=== PATIENT | male | born 1975 | race Caucasian/White ===

== ENCOUNTER 2020-09-28 13:23 | Emergency (ER) | payer BC ==
[~2020-09-28] VITALS: Ht 180.3 cm; Wt 86.4 kg
[2020-09-28] MEDS ORDERED: ketorolac tromethamine 15mg/ml inj. IM ONE (15:50)
[2020-09-28] MEDS ORDERED: cyclobenzaprine 10mg tablet PO ONE (15:50)
[2020-09-28] MEDS ORDERED: DIAZ5TAB22 PO (17:07)
[2020-09-28] MEDS ORDERED: IBUP-1984 PO (17:07)
--- NOTE | 2020-09-28 20:01 | NUR ---
PATIENT IN HARD C COLLAR LYING IN BED 15. PATIENT REPORTS 8/10 PAIN IN NECK AND PRIMARILY ACHING FROM LEFT LATERAL SHOULDER TO ELBOW. 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 HE REPORTS WRESTLING WITH A FRIEND WELL PITCHING A BASEBALL GAME RECENTLY. HE WENT TO "VERTICAL CHIROPRACTIC" AND WAS ADJUSTED TODAY. HE ALSO WENT TO [facility] WHO HE SAYS SENT HIM HERE
[2020-09-28] MEDS ORDERED: diazepam inj 5 MG/ML inj. IV ONE (20:15)
[2020-09-28] MEDS ORDERED: morphine 2 MG/ML inj. syringe IV PRN (20:15)
--- NOTE | 2020-09-28 20:35 | NUR ---
phone report to rubia weiss at [facility]. rubia weiss wanted a rapid covid swab performed. completed. results to be faxed
[2020-09-28 20:40] VITALS: BP 117/56
--- NOTE | 2020-09-28 20:40 | NUR ---
bedside report to dignity clerk guide lupe
--- NOTE | 2020-09-28 21:19 | NUR ---
negative covid result faxed to [facility] er [phone]
== END 2020-09-28 20:41 | disposition short-term general hospital (02) ==
LOC: ER 13:24
DX: S12.500A Unspecified displaced fracture of sixth cervical vertebra, initial encounter for closed fracture (principal); S12.600A Unspecified displaced fracture of seventh cervical vertebra, initial encounter for closed fracture; Z20.822 Contact with and (suspected) exposure to COVID-19; W18.39XA Other fall on same level, initial encounter; Y93.89 Activity, other specified; Y92.89 Other specified places as the place of occurrence of the external cause; Y99.8 Other external cause status
CPT/HCPCS: 72125; 72141; 87635; 96372; 96374; 96375; 99285; C9803; J1885; J2270; J3360

== ENCOUNTER 2021-05-01 15:10 | Emergency (ER) | payer BC ==
[~2021-05-01] VITALS: Ht 180.3 cm; Wt 86.4 kg
[2021-05-01 15:14] VITALS: BP 127/93
== END 2021-05-01 17:22 | disposition home or self-care (01) ==
LOC: ER 15:10
DX: T18.9XXA Foreign body of alimentary tract, part unspecified, initial encounter (principal); X58.XXXA Exposure to other specified factors, initial encounter; Y93.89 Activity, other specified; Y92.89 Other specified places as the place of occurrence of the external cause; Y99.8 Other external cause status
CPT/HCPCS: 71046; 99283

== ENCOUNTER → 2024-09-19 | Emergency (ER) | payer BC ==
[~2024-09-19] VITALS: Ht 180.3 cm; Wt 84.4 kg
[~2024-09-19] MED LIST: CYCL-394 PO; NAPR-56 PO
[2024-09-19 14:24] VITALS: TEMP 98.5
[2024-09-19 14:53] VITALS: BP 101/61; PULSE 70; RESP 15; O2SAT 94
--- NOTE | 2024-09-19 15:13 | RADIOLOGY REPORT ---
CHEST RADIOGRAPH Indication: left rib pain with rhonchi and SOB s/p trauma Technique: Single frontal view of the chest was obtained Comparison: None FINDINGS: Lines and Tubes: None Lungs: No focal consolidation. Pleura: No effusion. No pneumothorax. Cardiomediastinal contours: Cardiomegaly. Bones: No acute osseous abnormality. IMPRESSION: 1. No acute cardiopulmonary disease.
[2024-09-19] MEDS: acetaminophen 325mg tablet PO ONE (16:06)
[2024-09-19] MEDS: ketorolac trometh 15mg/ml vial 15 MG/ML ML IM ONE (16:06)
--- NOTE | 2024-09-19 16:42 | RADIOLOGY REPORT ---
Indication: fall Technique: 2 views thoracic spine Comparison: None FINDINGS/IMPRESSION: The thoracic vertebral body heights are maintained. [id number] multilevel disc space narrowing. Alignment grossly preserved.
--- NOTE | 2024-09-19 16:42 | RADIOLOGY REPORT ---
Indication: fall Technique: 3 views lumbar spine Comparison: None FINDINGS/IMPRESSION: Lumbar vertebral body heights are maintained. Mild multilevel disc space narrowing. Alignment prese rved. [id number] lumbar facet hypertrophic changes most pronounced at L5-S1.
--- NOTE | 2024-09-19 16:42 | Physician Documentation ---
History of Present Illness ~ Chief Complaint: Rib pain Stated Complaint: RIB PAIN Time Seen by MD: 14:47 HPI 48-year-old male presents to the ED with a complaint of back left rib pain because he was wrestling with a friend this afternoon under the influence and his friend dropped him on the concrete on the left side. States he has a history of rib fractures. Reports difficult the with the in inspiration Day of Onset: September 19, 2024 Tetanus within 5 Years?: No (unknown) Allergies: Coded Allergies: No Known Allergies (Unverified , 09/28/20) Active Prescriptions See Medication Reconciliation Form. Medication Reconciliation Scheduled Cyclobenzaprine HCl (Cyclobenzaprine HCl), 1 TAB PO Q8H Naproxen (Naproxen), 1 TAB PO Q12H Past Medical History Past Medical History: *PULMONARY* Past Surgical History: noncontributory Smoking Status: Never smoker Alcohol Use: None Drug Use: none Review of Systems All Other Systems at this time: Reviewed and Negative ROS As stated above in the HPI, otherwise all systems are reviewed and negative. Physical Exam Vital Signs: Temperature: 98.5, Source: Oral, Heart Rate: 70, Respiratory Rate: 15, BP: 101/61, Pulse Oximetry: 94, Weight: 84.400 Oxygen Flow Rate: 0 Physical Exam General: Alert, no apparent distress. Neck: Full range of motion. Respiratory: Lungs clear, no respiratory distress. back: Or to lumbar region on the left side , tender to thoracic region on the left side Extremities: Normal range of motion, no deformity. Neurologic: Oriented x4. Psychiatric: Normal mood and affect. Skin: Normal color, warm and dry. No edema, no ecchymosis. 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 Going to treat patient for centrally back pain secondary to his fall along with the rib pain secondary to his fall. He does not present with any acute distress been discharged from outpatient therapy Differential Dx:Considerations: Include: Chest wall contusion, Flail chest, Myocardial contusion, Pneumothorax, Pulmonary contusion, Rib fracture, Renal contusion, Splenic fracture, Tension pneumothorax, Other Departure Disposition: HOME / SELF CARE / HOMELESS Impression: Primary Impression: Rib pain Additional Impression: Cervical radicular pain Condition: Stable Discharge Instructions: Rib Contusion Referrals: NO PRIMARY CARE PROVIDER (PCP) Prescriptions Naproxen (Naproxen) 500 Mg Tablet 1 TAB PO Q12H, #20 TAB Prov: PARISH MARCH NP 09/19/24 Cyclobenzaprine HCl (Cyclobenzaprine HCl) 10 Mg Tablet 1 TAB PO Q8H for muscle spasms for 10 Days, #30 TAB Prov: PARISH MARCH NP 09/19/24 Signature Scribe Signature: D Attestation: The note accurately reflects work and decisions made by me.Parish Acevedo NP 09/19/24 22:57 PARISH MARCH NP September 19, 2024 16:42
== END | disposition home or self-care (01) ==
LOC: ER 14:13
DX: R07.81 Pleurodynia (principal); M54.12 Radiculopathy, cervical region; Z79.899 Other long term (current) drug therapy; X58.XXXA Exposure to other specified factors, initial encounter; Y93.72 Activity, wrestling; Y92.89 Other specified places as the place of occurrence of the external cause; Y99.8 Other external cause status
CPT/HCPCS: 71045; 72074; 72100; 99284